=== PATIENT | male | born 1980 | race Caucasian/White ===

== ENCOUNTER 2017-04-20 03:40 | Emergency (ER) | payer SELFPAY ==
--- NOTE | 2017-04-20 04:21 | NUR ---
CALLED NO ANSWER IN [facility]
--- NOTE | 2017-04-20 04:56 | NUR ---
CALLED NO ANSWER
== END 2017-04-20 04:57 | disposition left against medical advice (07) ==
LOC: ER 03:47
DX: Z53.21 Procedure and treatment not carried out due to patient leaving prior to being seen by health care provider (principal)